=== PATIENT | female | born 1960 | race Caucasian/White ===

== ENCOUNTER 2018-09-05 15:13 | Outpatient (CLI) | payer OTHER, SELFPAY ==
--- NOTE | 2018-09-05 15:58 | DI.RAD_ITS ---
SYMPTOMS/DIAGNOSIS: LEFT NECK PAIN, M54.2 C-SPINE: AP, lateral, oblique and open-mouth odontoid projections are provided. There is mild reversal of the normal cervical lordosis. Disc space narrowing, and discogenic sclerosis and hypertrophic spurring are identified at C5-C6 and C6- C7. Facet joint degenerative changes are noted at these levels. The neural canal and neural foramina appear widely patent. The posterior elements are intact. The odontoid is well maintained and is closely applied to the anterior arch of C1. SUMMARY: There are degenerative changes involving the lower cervical spine as noted above.
== END 2018-09-05 15:33 ==
PROVIDERS: PCP Nurse Practitioner Family; Visit Provider Family Medicine
DX: M54.2 Cervicalgia (principal); M50.322 Other cervical disc degeneration at C5-C6 level; M47.812 Spondylosis without myelopathy or radiculopathy, cervical region
CPT/HCPCS: 72050

== ENCOUNTER 2019-04-26 08:02 | Outpatient (REF) | payer OTHER, SELFPAY ==
[2019-04-26 21:00] LABS: Calculated LDL 138; Cholesterol 216 mg/dL (50-200); Glucose 92 mg/dL (70-100); HDL Cholesterol 52 mg/dL (40-60); TSH 1.91 uIU/mL (0.358-3.74); Triglyceride 132 mg/dL (30-150)
== END 2019-04-26 08:22 ==
LOC: NCHCN 08:02
PROVIDERS: PCP Nurse Practitioner Family; Visit Provider Nurse Practitioner Family
DX: Z00.00 Encounter for general adult medical examination without abnormal findings (principal); Z13.220 Encounter for screening for lipoid disorders; Z13.1 Encounter for screening for diabetes mellitus; Z13.29 Encounter for screening for other suspected endocrine disorder
CPT/HCPCS: 80061; 82947; 83721; 84443

== ENCOUNTER 2020-05-02 18:51 | Outpatient (REF) | payer OTHER, SELFPAY ==
[2020-05-03 23:28] LABS: COVID-19 RT-PCR Result NEGATIVE (Negative)
== END 2020-05-02 19:11 ==
LOC: NCHCN 18:51
PROVIDERS: PCP Nurse Practitioner Family; Visit Provider Family Medicine
DX: Z20.828 Contact with and (suspected) exposure to other viral communicable diseases (principal)
CPT/HCPCS: U0003

== ENCOUNTER 2020-10-06 10:36 | Outpatient (REF) | payer SELFPAY ==
[2020-10-08 17:11] LABS: SARS-CoV-2 RNA Not Detected (NotDetected); SARS-CoV-2 RNA Source Nasal/Nares
== END 2020-10-06 10:56 ==
LOC: NCHCN 10:36
PROVIDERS: PCP Nurse Practitioner Family; Visit Provider Nurse Practitioner Family
DX: Z11.59 Encounter for screening for other viral diseases (principal)
CPT/HCPCS: U0003

== ENCOUNTER 2020-12-01 12:31 | Outpatient (REF) | payer OTHER, SELFPAY ==
[2020-12-02 21:54] LABS: COVID-19 RT-PCR Result NEGATIVE (Negative)
== END 2020-12-01 12:51 ==
LOC: NCHCN 12:31
PROVIDERS: PCP Nurse Practitioner Family; Visit Provider Nurse Practitioner Family
DX: Z11.52 Encounter for screening for COVID-19 (principal)
CPT/HCPCS: U0003

== ENCOUNTER 2021-04-06 09:00 | Outpatient (REF) | payer OTHER, SELFPAY ==
[2021-04-06 16:09] LABS: Calculated LDL 138 mg/dL (<100); Cholesterol 212 mg/dL (<200); Glucose 94 mg/dL (74-106); HDL Cholesterol 57 mg/dL (40-60); Triglyceride 89 mg/dL (<150)
== END 2021-04-06 09:01 | disposition home or self-care (01) ==
LOC: NCHCN 09:00
PROVIDERS: PCP Nurse Practitioner Family; Visit Provider Nurse Practitioner Family
DX: Z00.00 Encounter for general adult medical examination without abnormal findings (principal); Z13.1 Encounter for screening for diabetes mellitus; Z13.220 Encounter for screening for lipoid disorders
CPT/HCPCS: 80061; 82947

== ENCOUNTER 2021-10-05 13:49 | Outpatient (REF) | payer OTHER, SELFPAY ==
[2021-10-06 21:18] LABS: COVID-19 RT-PCR UVMMC Result Negative (Negative)
== END 2021-10-05 13:50 | disposition home or self-care (01) ==
LOC: LBN 13:49
PROVIDERS: PCP Nurse Practitioner Family; Visit Provider Nurse Practitioner Family
DX: J06.9 Acute upper respiratory infection, unspecified (principal); Z20.822 Contact with and (suspected) exposure to COVID-19
CPT/HCPCS: U0003

== ENCOUNTER 2021-10-12 08:18 | Outpatient (REF) | payer OTHER, SELFPAY ==
[2021-10-14 18:20] LABS: COVID-19 RT-PCR UVMMC Result Negative (Negative)
== END 2021-10-12 08:19 | disposition home or self-care (01) ==
LOC: NCHCN 08:18
PROVIDERS: PCP Nurse Practitioner Family; Visit Provider Family Medicine
DX: Z20.822 Contact with and (suspected) exposure to COVID-19 (principal); J34.89 Other specified disorders of nose and nasal sinuses
CPT/HCPCS: U0003

== ENCOUNTER 2021-11-02 14:49 | Outpatient (REF) | payer OTHER, SELFPAY ==
[2021-11-03 13:41] LABS: COVID-19 RT-PCR UVMMC Result Negative (Negative)
== END 2021-11-02 14:50 | disposition home or self-care (01) ==
LOC: NCHCN 14:49
PROVIDERS: PCP Nurse Practitioner Family; Visit Provider Nurse Practitioner Family
DX: Z20.822 Contact with and (suspected) exposure to COVID-19 (principal)
CPT/HCPCS: U0003

== ENCOUNTER 2022-04-07 10:02 | Outpatient (REF) | payer OTHER, SELFPAY ==
[2022-04-07 16:10] LABS: Calculated LDL 192 mg/dL (<100); Cholesterol 276 mg/dL (<200); Glucose 94 mg/dL (74-106); HDL Cholesterol 65 mg/dL (40-60); Triglyceride 96 mg/dL (<150)
== END 2022-04-07 10:03 | disposition home or self-care (01) ==
LOC: NCHCN 10:02
PROVIDERS: PCP Nurse Practitioner Family; Visit Provider Nurse Practitioner Family
DX: Z00.00 Encounter for general adult medical examination without abnormal findings (principal); Z13.1 Encounter for screening for diabetes mellitus; Z13.220 Encounter for screening for lipoid disorders
CPT/HCPCS: 80061; 82947

== ENCOUNTER 2022-05-31 15:30 | Outpatient (REF) | payer OTHER, SELFPAY ==
[2022-06-01 11:05] LABS: Lyme Ab w Rflx to Lyme Confirm Negative (Negative)
[2022-06-02 00:51] LABS: Anaplasma phagocytophilum Negative (Negative); B. miyamotoi PCR Negative (Negative); Babesia divergens/MO-1 Negative (Negative); Babesia duncani Negative (Negative); Babesia microti Negative (Negative); Ehrlichia chaffeensis Negative (Negative); Ehrlichia ewingii/canis Negative (Negative); Ehrlichia muris eauclairensis Negative (Negative)
== END 2022-05-31 15:31 | disposition home or self-care (01) ==
LOC: NCHCN 15:30
PROVIDERS: PCP Nurse Practitioner Family; Visit Provider Nurse Practitioner Family
DX: R21 Rash and other nonspecific skin eruption (principal)
CPT/HCPCS: 87798; 86618

== ENCOUNTER 2024-04-09 10:18 | Outpatient (REF) | payer BC, SELFPAY ==
[2024-04-09 15:43] LABS: Hemoglobin A1C 5.7 % (<5.7)
[2024-04-09 15:48] LABS: Calculated LDL 154 mg/dL (<100); Cholesterol 242 mg/dL (<200); HDL Cholesterol 71 mg/dL (40-60); TSH (W/Ref FT4) 3.37 uIU/mL (0.36-3.74); Triglyceride 89 mg/dL (<150)
== END 2024-04-09 10:19 | disposition home or self-care (01) ==
LOC: NCHCN 10:18
PROVIDERS: PCP Nurse Practitioner Family; Visit Provider Nurse Practitioner Family
DX: R53.83 Other fatigue (principal); Z00.00 Encounter for general adult medical examination without abnormal findings
CPT/HCPCS: 80061; 83036; 84443

== ENCOUNTER 2024-08-15 13:55 | Emergency (ER) | payer BC, SELFPAY ==
[2024-08-15 13:55] VITALS: BP 176/92; PULSE 78; RESP 15; O2SAT 98
[2024-08-15 14:00] VITALS: BP 164/65; PULSE 71
--- NOTE | 2024-08-15 14:01 | ED.GENADUL_ITS ---
Discharge Plan Disposition Patient Disposition: Home Condition: Stable Discharge Details Clinical Impression: Urticaria Primary Care Provider: Reina Gibson ED Provider: Samara Hurt Discharge Instructions Instructions: Hives Additional Instructions: Unknown cause of your hives today. If symptoms return try Claritin or Pepcid. If you develop any difficulty breathing, wheezing, coughing, nausea or abdominal pain these would be signs of a severe allergic reaction then you should get reassessed at that time HPI General Date/Time Provider Initiated Documentation: 08/15/24 13:59 . Limitations to Documentation: no limitations . Information obtained by: patient and EMS . HPI Narrative: 63-year-old female without significant past medical history presents for evaluation of urticaria. Reports that she had just eaten lunch while at work. She states after eating she noticed that she developed a generalized red rash. 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 She took 50 mg of Benadryl orally. She reports feeling flushed, but no shortness of breath no nausea, vomiting or abdominal pain. She reports that her lunch was just leftovers from last night. Chicken and stir fried vegetables, all vegetables and saw she had eaten before. No one was eating at the same time with her. She has no history of food allergies. EMS reports that she had normal vital signs and symptoms resolved prior to arrival. Patient denies any history of allergic reactions, recent URI symptoms or cold symptoms. Denies any change in soaps lotions or detergents. Related Data Allergies Allergy/AdvReac Type Severity Reaction Status Date / Time No Known Allergies Allergy Verified 12/18/20 10:58 General Stated Complaint: Allergic DANA: 3 Exam Narrative Exam Narrative: Review of Systems: All systems reviewed & are unremarkable except as noted in HPI and below Well-developed, no acute distress NCAT PERRL, normal conjunctiva RRR no murmur Unlabored respiratory effort clear bilaterally Nondistended abdomen soft nontender Extremities w/o edema No rashes or lesions. No appreciable urticaria Course Vital Signs Vital signs: Vital Signs Pulse 78 08/15/24 13:55 Respiratory Rate 15 08/15/24 13:55 Blood Pressure 176/92 H 08/15/24 13:55 Pulse Oximetry 98 08/15/24 13:55 Pulse 78 08/15/24 13:55 Respiratory Rate 15 08/15/24 13:55 Respiratory Effort Normal 08/15/24 13:58 Blood Pressure 176/92 H 08/15/24 13:55 Blood Pressure Position Sitting 08/15/24 13:55 Pulse Oximetry 98 08/15/24 13:55 Oxygen Delivery Method Room Air 08/15/24 13:55 Oxygen Flow Rate 0 08/15/24 13:55 Pain Level 0 08/15/24 13:55 Medical Decision Making Emergent evaluation of allergic reaction. Symptoms have resolved prior to arrival. She did take 50 mg of oral Benadryl. There was no signs or symptoms concerning for anaphylaxis, so no epinephrine is indicated. It is unclear what the etiology of the symptoms may have been this the patient does not seem to have had any exposure to known allergen or anything new that may have been an unknown allergen. The urticaria has resolved and patient is hemodynamically stable. The plan is for oral steroids, will observe to make sure that symptoms have not returned but anticipate discharge home. 1430 Patient observed in the emergency department, no return of symptoms. Continues to feel well without any evidence of urticaria. Recommend Claritin as needed at home. Monitoring of symptoms, if she has frequent recurrence of allergic symptoms, she may need referral to allergy which can be done through her PCP. Return precautions advised Quality:SDOH Health Related Social Needs: No Data to Display PFSH All Active Problems (Updated 08/15/24 @ 14:32 by Samara Hurt MD) Urticaria (Acute) Obstructive sleep apnea (adult) (pediatric) (Acute) Neoplasm of unspecified behavior of bone, soft tissue, and skin (Acute) Social History Smoking risk assessment performed?: No
[2024-08-15] MEDS: Dexamethasone 4 MG TAB 10 MG PO (14:08)
[2024-08-15 14:40] VITALS: BP 156/72; PULSE 66; RESP 12; O2SAT 98
== END 2024-08-15 14:45 | disposition home or self-care (01) ==
PROVIDERS: Emergency Provider Emergency Medicine; PCP Nurse Practitioner Family
DX: L50.9 Urticaria, unspecified (principal)
CPT/HCPCS: 99283; 99284; J8540

== ENCOUNTER 2024-08-29 18:22 | Outpatient (REF) | payer BC, SELFPAY ==
[2024-08-29 19:41] LABS: Abs Immature Grans 0.03 10^3/uL (0.0-0.06); Absolute Basophil Count 0.06 10^3/uL (0.0-0.2); Absolute Eosinophil Count 0.19 10^3/uL (0.0-0.7); Absolute Monocyte Count 0.65 10^3/uL (0.1-0.8); Basophils % 0.7 %; Eosinophils % 2.1 %; HCT 41.8 % (36.0-46.0); HGB 13.7 g/dL (11.2-15.7); Immature Grans % 0.3 %; Lymphocytes % 25.2 %; MCH 30.2 pg (27.0-33.0); MCHC 32.8 % (32.0-36.0); MCV 92 fL (80-95); MPV 11.7 fL (8.0-11.0); Monocytes % 7.1 %; Neutrophils % 64.6 %; Platelet Count 222 10^3/uL (130-400); RBC 4.53 10^6/uL (3.93-5.22); RDW 12.9 % (11.7-14.6); RDW-SD 43.9 fL; WBC 9.13 10^3/uL (4.4-10.8)
[2024-08-29 20:02] LABS: ALT 56 U/L (14-59); AST 32 U/L (15-37); Alkaline Phosphatase 81 U/L (46-116); Anion Gap 8.4 mmol/L (3-11); BUN 17 mg/dL (7-18); Bilirubin, Total 0.32 mg/dL (0.2-1.0); CO2 28.6 mmol/L (21.0-32.0); CREATININE 0.8 mg/dL (0.55-1.02); Calcium 9.2 mg/dL (8.5-10.1); Chloride 106 mmol/L (98-107); Estimated GFR 83.26 (mL/min/1.73m2); Glucose 96 mg/dL (74-106); Potassium 4.5 mmol/L (3.5-5.1); Sodium 143 mmol/L (136-145); TSH 2.18 uIU/Ml (0.36-3.74); Total Protein 7.4 g/dL (6.4-8.2)
[2024-08-29 20:31] LABS: FREE T4 0.94 ng/dL (0.76-1.46)
== END 2024-08-29 18:23 | disposition home or self-care (01) ==
LOC: NCHCN 18:22
PROVIDERS: PCP Nurse Practitioner Family; Visit Provider Physician Assistant Medical
DX: L50.9 Urticaria, unspecified (principal)
CPT/HCPCS: 80053; 84439; 84443; 85025

== ENCOUNTER 2025-01-11 00:29 | Outpatient (CLI) | payer BC, SELFPAY ==
--- NOTE | 2025-01-11 | DI.US_ITS ---
Exam(s) US SOFT TISSUE EXTREMITY EXAM: US SOFT TISSUE EXTREMITY CLINICAL HISTORY: SWELLING KNEE JOINT,M25.469,? BAKERS CYST. TECHNIQUE: Ultrasound was performed using standard protocol. COMPARISON: No exams were available for comparison FINDINGS: Sonographic assessment utilizing grayscale and color Doppler imaging was performed and targeted to th e area of clinical concern. There is a 4.4 x 1.3 x 4.3 cm fluid collection in the popliteal fossa consistent with a Zavala cyst. No sonographic evidence of a joint effusion of the knee. 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 DATA REPOSITORY:
--- NOTE | 2025-01-11 | DI.RAD_ITS ---
Exam(s) XR KNEE LT 4V+ EXAM: XR KNEE LT 4V+ CLINICAL HISTORY: PAIN LT KNEE.M25.562. TECHNIQUE: 2D digital imaging was performed of the left knee. Four images were obtained. Merchant, AP, lateral and PA tunnel views were obtained. COMPARISON: No exams were available for comparison FINDINGS: BONES: No acute fracture is present. No bony destructive lesion is seen. JOINTS: The knee is normally aligned. There is a very small joint effusion. No loose body. SOFT TISSUE: Normal. IMPRESSION: Small joint effusion. DATA REPOSITORY: RADIATION DOSE DELIVERED:
== END 2025-01-11 00:49 ==
LOC: DI 00:29
PROVIDERS: PCP Physician Assistant Medical; Visit Provider Family Medicine
DX: M25.562 Pain in left knee (principal)
CPT/HCPCS: 76881; 73564

== ENCOUNTER 2025-04-17 12:39 | Outpatient (REF) | payer BC, SELFPAY ==
[2025-04-18 13:55] LABS: IgA 107 mg/dL (85-499); Interpretation (See Note); Tissue Transglutaminase IgA <4.0 CU (<20.0)
== END 2025-04-17 12:40 | disposition home or self-care (01) ==
LOC: NCHCN 12:39
PROVIDERS: PCP Physician Assistant Medical; Visit Provider Physician Assistant Medical
DX: R19.8 Other specified symptoms and signs involving the digestive system and abdomen (principal)
CPT/HCPCS: 82784; 83516